=== PATIENT | male | born 1990 | race African-American/Black ===

== ENCOUNTER 2018-03-01 17:53 | Emergency (ER) | payer OTHER ==
[~2018-03-01] VITALS: Ht 185.4 cm; Wt 86.3 kg
[2018-03-01 19:04] VITALS: BP 124/68
[2018-03-02] MEDS ORDERED: SODIUM BICARBONATE 4% (2.4MEQ) 5ML VIAL IV ONE (08:53)
== END 2018-03-01 20:13 | disposition left against medical advice (07) ==
LOC: ER 17:53
DX: Z53.21 Procedure and treatment not carried out due to patient leaving prior to being seen by health care provider (principal)
CPT/HCPCS: J3490